=== PATIENT | female | born 1935 | race Caucasian/White ===

== ENCOUNTER 2016-10-07 16:45 | Emergency (ER) | payer OTHER, MEDICARE ==
[~2016-10-07 16:45] MED LIST: ACET650T67; ASPI81CH CHEW; ATOR40TA16 PO; CALC1CHW; CENTCHW3; CLOP75TA PO; GABA300C5 PO; NITR0.4S SL; TELM1TAB2 PO
[2016-10-07] MEDS ORDERED: MAGNESIUM HYDROXIDE SUSP 30 ML CUP PO PRN (19:30)
[2016-10-07] MEDS ORDERED: ONDANSETRON HCL 4 MG/2 ML VIAL IV PRN (19:30)
[2016-10-07] MEDS ORDERED: MORPHINE SULFATE 4 MG/ML INJ IV PRN (19:30)
[2016-10-07] MEDS ORDERED: SODIUM CHLORIDE 0.9% FLUSH 10 ML FLUSH IV FLUSH PRN (19:30)
[2016-10-07] MEDS ORDERED: ACETAMINOPHEN/HYDROcodone 325 MG/5 MG TAB PO PRN ×2 (19:30)
[2016-10-07] MEDS ORDERED: ENALAPRILAT 1.25 MG/ML VIAL IV PRN (19:30)
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
[2016-10-07 20:23] VITALS: BP 116/54; PULSE 83; RESP 18; TEMP 97.9; O2SAT 94
[2016-10-07] MEDS ORDERED: PANTOPRAZOLE SODIUM 40 MG VIAL IVP SCH (21:00)
[2016-10-07] MEDS ORDERED: ATORVASTATIN 40 MG TAB PO SCH (21:00)
[2016-10-07] MEDS: DOCUSATE SODIUM 100 MG CAP PO SCH (21:38)
[2016-10-07] MEDS: BACITRACIN TOP OINT 15 GM TUBE TOP SCH (21:39)
[2016-10-08 00:16] VITALS: BP 114/54; PULSE 84; RESP 18; TEMP 98; O2SAT 95
[2016-10-08 04:41] VITALS: BP 144/62; PULSE 76; RESP 18; TEMP 98; O2SAT 97
[2016-10-08 08:06] VITALS: BP 125/54; PULSE 76; RESP 18; TEMP 97.8; O2SAT 97
[2016-10-08] MEDS: GABAPENTIN 300 MG CAP PO SCH ×2 (08:37→13:06)
[2016-10-08] MEDS: DOCUSATE SODIUM 100 MG CAP PO SCH (08:37)
[2016-10-08] MEDS: METHOCARBAMOL 500 MG TAB PO SCH ×2 (08:38→13:06)
[2016-10-08] MEDS: BACITRACIN TOP OINT 15 GM TUBE TOP SCH (08:40)
[2016-10-08] MEDS ORDERED: LOSARTAN 50 MG TAB PO SCH (09:00)
[2016-10-08] MEDS ORDERED: LACTULOSE SYRUP 20 GM/30 ML CUP PO SCH (09:00)
[2016-10-08] MEDS ORDERED: LIDOCAINE HCL 5% PATCH T-DERMAL SCH (09:00)
--- NOTE | 2016-10-08 10:30 | RADRPT ---
EXAM DATE/TIME: 10/08/2016 09:59 [facility] COMPARISON: CHEST SINGLE AP, October 07, 2016, 13:42. INDICATIONS : Shortness of breath. MEDICAL HISTORY : Chronic obstructive pulmonary disease. SURGICAL HISTORY : CABG. ENCOUNTER: Initial ACUITY: 2 days PAIN SCORE: 0/10 LOCATION: Bilateral chest FINDINGS: Single AP view of the chest. Median sternotomy wires. Mild patchy opacity left lung. Cardiomediastina l silhouette within normal limits. No evidence of pleural effusion or pneumothorax. CONCLUSION: Mild patchy opacity in the left mid to lower lung. Sushil Machado MD on October 08, 2016 at 10:27 Board Certified Radiologist. This report was verified electronically.
[2016-10-08 12:27] VITALS: BP 106/49; PULSE 82; RESP 18; TEMP 97.9; O2SAT 95
[2016-10-08] MEDS ORDERED: HYDR-3516 PO (13:26)
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
== END 2016-10-08 13:41 | disposition home or self-care (01) ==
LOC: NEDDLT 16:45 → UNDOADMOB 19:00 → NEDA 19:00 → NEPGCP 19:07 → UNDODISOB 10-08 13:41 → NEDDLT 10-08 13:41
DX: [UNRECOGNIZED DIAGNOSIS CODE] (principal); V05 Pedestrian injured in collision with railway train or railway vehicle; E849.5; E812.0
CPT/HCPCS: 70450; 71010; 71250; 72125; 73564; 74176; 80053; 81001; 85025; 85610; 85730; 86850; 86900; 86901; 87086; 90471; 90714; 93005; 94150; 94640; 96372; 97161; 99285; C9113; G8987; G8988; J1170; J2270; J7040; J7050; 99281